=== PATIENT | male | born 1980 | race Caucasian/White ===

== ENCOUNTER 2019-07-04 12:11 | Emergency (ER) | payer MEDICAID ==
[~2019-07-04] VITALS: Ht 182.9 cm; Wt 109.1 kg
[2019-07-04 12:12] VITALS: BP 124/91
== END 2019-07-04 12:50 | disposition home or self-care (01) ==
LOC: ER 12:12
DX: R05 Cough (principal); B34.9 Viral infection, unspecified; R50.9 Fever, unspecified; F07.81 Postconcussional syndrome; R51 Headache; I25.2 Old myocardial infarction; F12.90 Cannabis use, unspecified, uncomplicated; F15.90 Other stimulant use, unspecified, uncomplicated; Z88.5 Allergy status to narcotic agent
CPT/HCPCS: 99282

== ENCOUNTER 2019-09-17 06:16 | Emergency (ER) | payer MEDICAID ==
[~2019-09-17] VITALS: Ht 182.9 cm; Wt 96.4 kg
[2019-09-17 06:23] VITALS: BP 130/82
[2019-09-17] MEDS ORDERED: LIDOcaine 1% 30ml preserv. free vial SQ STA (07:06)
--- NOTE | 2019-09-17 08:08 | NUR ---
Dr. Maria at bedside.
[2019-09-17] MEDS ORDERED: ALBU6.7H9 INH (08:27)
== END 2019-09-17 08:41 | disposition home or self-care (01) ==
LOC: ER 06:18
DX: S61.211A Laceration without foreign body of left index finger without damage to nail, initial encounter (principal); M79.645 Pain in left finger(s); I25.2 Old myocardial infarction; F17.200 Nicotine dependence, unspecified, uncomplicated; F12.90 Cannabis use, unspecified, uncomplicated; F15.90 Other stimulant use, unspecified, uncomplicated; Z88.8 Allergy status to other drugs, medicaments and biological substances; Z79.899 Other long term (current) drug therapy; W45.8XXA Other foreign body or object entering through skin, initial encounter; Y93.89 Activity, other specified; Y92.89 Other specified places as the place of occurrence of the external cause; Y99.8 Other external cause status
CPT/HCPCS: 12001; 99283

== ENCOUNTER 2019-10-28 21:00 | Emergency (ER) | payer MEDICAID ==
[~2019-10-28] VITALS: Ht 182.9 cm; Wt 100.0 kg
[~2019-10-28 21:00] MED LIST: ALBU6.7H9 INH
[2019-10-28 21:11] VITALS: BP 150/91
[2019-10-28] MEDS ORDERED: ibuprofen tablet 400 MG TABLET PO ONE (22:05)
[2019-10-28] MEDS ORDERED: ketorolac tromethamine 15mg/ml inj. IM ONE (23:30)
[2019-10-28] MEDS ORDERED: HYDR-3965 PO (23:51)
[2019-10-30] MEDS ORDERED: TRAM50TA2 PO (13:08)
[2019-10-30] MEDS ORDERED: SULF1TAB49 PO (13:08)
[2019-10-30] MEDS ORDERED: LEVO750T21 PO (13:08)
== END 2019-10-29 00:09 | disposition home or self-care (01) ==
LOC: ER 21:01
DX: S90.812A Abrasion, left foot, initial encounter (principal); M79.672 Pain in left foot; M79.89 Other specified soft tissue disorders; I25.2 Old myocardial infarction; F12.90 Cannabis use, unspecified, uncomplicated; F15.90 Other stimulant use, unspecified, uncomplicated; Z88.8 Allergy status to other drugs, medicaments and biological substances; Z79.899 Other long term (current) drug therapy; X58.XXXA Exposure to other specified factors, initial encounter; Y93.89 Activity, other specified; Y92.89 Other specified places as the place of occurrence of the external cause; Y99.8 Other external cause status
CPT/HCPCS: 73630; 96372; 99283; J1885

== ENCOUNTER 2019-10-30 11:28 | Emergency (ER) | payer MEDICAID ==
[~2019-10-30] VITALS: Ht 182.9 cm; Wt 100.0 kg
[~2019-10-30 11:28] MED LIST changes: +HYDR-3965 PO
[2019-10-30] MEDS ORDERED: mupirocin 2% ointment 22GM TP STA (12:14)
[2019-10-30] MEDS ORDERED: TETanus/Pertussis (Acell)/Diphther VAC/PF (Tdap-Adult) 0.5ml syringe IMVAC ONE (12:15)
[2019-10-30] MEDS ORDERED: ceFAZolin 1gm IM kit IM ONE (12:55)
[2019-10-30] MEDS ORDERED: SULF1TAB49 PO (13:08)
[2019-10-30] MEDS ORDERED: LEVO750T21 PO (13:08)
[2019-10-30] MEDS ORDERED: TRAM50TA2 PO (13:08)
[2019-10-30 14:19] VITALS: BP 137/91
== END 2019-10-30 13:57 | disposition home or self-care (01) ==
LOC: ER 11:29
DX: S92.421B Displaced fracture of distal phalanx of right great toe, initial encounter for open fracture (principal); M79.674 Pain in right toe(s); M79.89 Other specified soft tissue disorders; I25.2 Old myocardial infarction; F12.90 Cannabis use, unspecified, uncomplicated; F15.90 Other stimulant use, unspecified, uncomplicated; Z88.8 Allergy status to other drugs, medicaments and biological substances; Z79.899 Other long term (current) drug therapy; X58.XXXA Exposure to other specified factors, initial encounter; Y93.01 Activity, walking, marching and hiking; Y92.89 Other specified places as the place of occurrence of the external cause; Y99.8 Other external cause status
CPT/HCPCS: 73660; 87070; 87077; 90471; 90715; 96372; 99284; J0690; 87186

== ENCOUNTER 2020-01-06 13:53 | Outpatient (CLI) | payer MEDICAID ==
[~2020-01-06 13:53] MED LIST changes: -HYDR-3965 PO
[2020-01-06 15:56] LABS: BASOPHILS # (AUTO) 0.1 X10'3 (0-0.2); BASOPHILS % (AUTO) 0.9 % (0-1); EOSINOPHILS # (AUTO) 0.2 X10'3 (0-0.9); EOSINOPHILS % (AUTO) 2.3 % (0-6); HEMATOCRIT 47.6 % (42.0-52.0); HEMOGLOBIN 16.4 g/dl (14.0-17.9); LYMPHOCYTES # (AUTO) 1.7 X10'3 (1.1-4.8); LYMPHOCYTES % (AUTO) 20.9 % (21-51); MEAN CORPUSCULAR HEMOGLOBIN 32.1 PG (27.0-31.0); MEAN CORPUSCULAR HGB CONC 34.5 g/dL (33.0-36.5); MEAN PLATELET VOLUME 8.7 FL (7.4-10.4); MONOCYTES % (AUTO) 12.8 % (2-12); NEUTROPHILS % (AUTO) 63.1 % (42-75); PLATELET COUNT 293 X10'3 (140-440); RED BLOOD COUNT 5.12 X10'6 (4.70-6.10); RED CELL DISTRIBUTION WIDTH 13.5 % (11.5-14.5)
[2020-01-06 16:14] LABS: ALANINE AMINOTRANSFERASE 18 U/L (12-78); ALBUMIN 4.3 G/DL (3.4-5.0); ALKALINE PHOSPHATASE 74 IU/L (46-116); ANION GAP 8 (8-16); ASPARTATE AMINO TRANSFERASE 16 U/L (10-37); BLOOD UREA NITROGEN 20 MG/DL (7-18); BUN/CREATININE RATIO 20.2 (5.4-32.0); CALCIUM 9.3 MG/DL (8.5-10.1); CHLORIDE 103 MMOL/L (99-107); CREATININE 0.99 MG/DL (0.60-1.10); GLUCOSE 81 MG/DL (70-104); POTASSIUM 3.6 MMOL/L (3.5-5.1); SODIUM 140 MMOL/L (135-145); TOTAL CARBON DIOXIDE 29.3 MMOL/L (24-32); TOTAL PROTEIN 8.5 G/DL (6.4-8.2); eGFR 85 ML/MIN
[2020-01-06 16:30] LABS: HEMOGLOBIN A1C 5.3 % (4.5-6.2)
[2020-01-06 18:10] LABS: HIV ANTIBODY 1&2 RAPID NON-REACTIVE (Neg)
[2020-01-08 14:11] LABS: HEP A AB, IGM Negative (Negative); HEPATITIS C ANTIBODY >11.0 s/co ratio (0.0-0.9)
== END 2020-01-06 23:59 | disposition home or self-care (01) ==
LOC: LAB 13:53
PROVIDERS: ATTEND Family Medicine
DX: Z11.3 Encounter for screening for infections with a predominantly sexual mode of transmission (principal)
CPT/HCPCS: 36415; 80053; 82043; 82570; 83036; 84439; 84443; 85025; 85651; 86140; 86480; 86592; 86703; 86706; 86709; 86803

== ENCOUNTER 2020-04-09 16:00 | Emergency (ER) | payer MEDICAID ==
[~2020-04-09] VITALS: Ht 182.9 cm; Wt 93.2 kg
[2020-04-09 16:24] VITALS: BP 111/72
[2020-04-09 18:31] LABS: BASOPHILS % (AUTO) 0.4 % (0-1); EOSINOPHILS # (AUTO) 0.3 X10'3 (0-0.9); EOSINOPHILS % (AUTO) 2.3 % (0-6); HEMATOCRIT 49.9 % (42.0-52.0); HEMOGLOBIN 17.2 g/dl (14.0-17.9); LYMPHOCYTES # (AUTO) 2.2 X10'3 (1.1-4.8); LYMPHOCYTES % (AUTO) 20.4 % (21-51); MEAN CORPUSCULAR HEMOGLOBIN 32.2 PG (27.0-31.0); MEAN CORPUSCULAR HGB CONC 34.5 g/dL (33.0-36.5); MEAN CORPUSCULAR VOLUME 93.5 FL (78-98); MONOCYTES # (AUTO) 0.9 X10'3 (0-0.9); MONOCYTES % (AUTO) 8.5 % (2-12); NEUTROPHILS # (AUTO) 7.4 X10'3 (1.8-7.7); NEUTROPHILS % (AUTO) 68.4 % (42-75); PLATELET COUNT 283 X10'3 (140-440); RED BLOOD COUNT 5.33 X10'6 (4.70-6.10); WHITE BLOOD COUNT 10.9 X10'3 (4.5-11.0)
[2020-04-09 18:46] LABS: C-REACTIVE PROTEIN 0.58 MG/DL (0.0-0.5)
== END 2020-04-09 20:05 | disposition home or self-care (01) ==
LOC: ER 16:01
DX: B34.9 Viral infection, unspecified (principal); R07.89 Other chest pain; F12.90 Cannabis use, unspecified, uncomplicated; F15.90 Other stimulant use, unspecified, uncomplicated; Z88.8 Allergy status to other drugs, medicaments and biological substances; Z79.899 Other long term (current) drug therapy; Z86.16 Personal history of COVID-19
CPT/HCPCS: 36415; 71045; 83735; 83880; 84484; 85025; 86140; 93005; 99285

== ENCOUNTER 2020-07-14 16:32 | Emergency (ER) | payer MEDICAID ==
[~2020-07-14] VITALS: Ht 182.9 cm; Wt 100.0 kg
[2020-07-14 16:34] VITALS: BP 121/65
== END 2020-07-14 18:21 | disposition home or self-care (01) ==
LOC: ER 16:33
DX: M25.562 Pain in left knee (principal); I25.2 Old myocardial infarction; F12.90 Cannabis use, unspecified, uncomplicated; F15.90 Other stimulant use, unspecified, uncomplicated; Z88.8 Allergy status to other drugs, medicaments and biological substances; Z79.899 Other long term (current) drug therapy
CPT/HCPCS: 73564; 99284

== ENCOUNTER 2020-07-31 21:03 | Emergency (ER) | payer MEDICAID ==
[~2020-07-31] VITALS: Ht 182.9 cm; Wt 97.7 kg
[2020-07-31 21:35] VITALS: BP 118/66
[2020-07-31] MEDS ORDERED: PRED20TA PO (21:42)
[2020-07-31] MEDS ORDERED: LIDOcaine 1% W/epiNEPHrine 1:200,000 10ml vial IJ ONE (21:50)
== END 2020-07-31 22:12 | disposition home or self-care (01) ==
LOC: ER 21:04
DX: S01.01XA Laceration without foreign body of scalp, initial encounter (principal); S09.90XA Unspecified injury of head, initial encounter; I25.2 Old myocardial infarction; F12.90 Cannabis use, unspecified, uncomplicated; F15.90 Other stimulant use, unspecified, uncomplicated; Z88.8 Allergy status to other drugs, medicaments and biological substances; Z79.899 Other long term (current) drug therapy; W22.8XXA Striking against or struck by other objects, initial encounter; Y93.89 Activity, other specified; Y92.89 Other specified places as the place of occurrence of the external cause; Y99.8 Other external cause status
CPT/HCPCS: 12001; 99282

== ENCOUNTER 2021-02-12 18:03 | Emergency (ER) | payer MEDICAID ==
[~2021-02-12] VITALS: Ht 182.9 cm; Wt 92.3 kg
[2021-02-12] MEDS ORDERED: AMOX-580 PO (20:30)
[2021-02-12] MEDS ORDERED: amox tr/potassium clavulanate 875/125mg TAB PO ONE (21:25)
[2021-02-12 21:36] VITALS: BP 108/74
== END 2021-02-12 21:37 | disposition home or self-care (01) ==
LOC: ER 18:04
DX: S60.463D Insect bite (nonvenomous) of left middle finger, subsequent encounter (principal); M79.89 Other specified soft tissue disorders; R07.89 Other chest pain; I25.2 Old myocardial infarction; F12.90 Cannabis use, unspecified, uncomplicated; F15.90 Other stimulant use, unspecified, uncomplicated; Z88.8 Allergy status to other drugs, medicaments and biological substances; Z79.2 Long term (current) use of antibiotics; Z79.899 Other long term (current) drug therapy; W55.01XD Bitten by cat, subsequent encounter
CPT/HCPCS: 93005; 99283

== ENCOUNTER 2023-05-18 14:19 | Emergency (ER) | payer MEDICAID ==
[~2023-05-18] VITALS: Ht 182.9 cm; Wt 93.3 kg
[~2023-05-18 14:19] MED LIST changes: +ALBU6.7H14 INH; -ALBU6.7H9 INH
[2023-05-18] MEDS ORDERED: DOXY-224 PO (14:25)
[2023-05-18] MEDS ORDERED: NAPR-56 PO (14:25)
[2023-05-18 14:31] VITALS: BP 126/66; PULSE 78; RESP 16; TEMP 97.7; O2SAT 98
== END 2023-05-18 14:33 | disposition home or self-care (01) ==
LOC: ER 14:19
DX: K04.7 Periapical abscess without sinus (principal); I25.2 Old myocardial infarction; F12.90 Cannabis use, unspecified, uncomplicated; F15.90 Other stimulant use, unspecified, uncomplicated; Z72.89 Other problems related to lifestyle; Z88.5 Allergy status to narcotic agent; Z79.899 Other long term (current) drug therapy
CPT/HCPCS: 99283

== ENCOUNTER 2024-03-18 17:40 | Emergency (ER) | payer MEDICAID ==
[~2024-03-18] VITALS: Ht 182.9 cm; Wt 94.5 kg
[2024-03-18 18:28] LABS: BASOPHILS # (AUTO) 0.1 X10'3 (0-0.2); BASOPHILS % (AUTO) 0.8 % (0-1); EOSINOPHILS # (AUTO) 0.4 X10'3 (0-0.9); EOSINOPHILS % (AUTO) 2.8 % (0-6); HEMATOCRIT 47.5 % (42.0-52.0); HEMOGLOBIN 16.5 g/dl (14.0-17.9); LYMPHOCYTES # (AUTO) 2.8 X10'3 (1.1-4.8); LYMPHOCYTES % (AUTO) 19.8 % (21-51); MEAN CORPUSCULAR HGB CONC 34.7 g/dL (33.0-36.5); MEAN CORPUSCULAR VOLUME 95.1 FL (78-98); MEAN PLATELET VOLUME 7.5 FL (7.4-10.4); MONOCYTES # (AUTO) 1.2 X10'3 (0-0.9); MONOCYTES % (AUTO) 8.4 % (2-12); NEUTROPHILS # (AUTO) 9.5 X10'3 (1.8-7.7); NEUTROPHILS % (AUTO) 68.2 % (42-75); PLATELET COUNT 266 X10'3 (140-440); RED BLOOD COUNT 4.99 X10'6 (4.70-6.10); RED CELL DISTRIBUTION WIDTH 13.4 % (11.5-14.5)
[2024-03-18 18:35] VITALS: BP 103/68; PULSE 72; TEMP 97.8; O2SAT 95
[2024-03-18 18:43] LABS: ALANINE AMINOTRANSFERASE 28 U/L (12-78); ALBUMIN 3.8 G/DL (3.4-5.0); ALBUMIN/GLOBULIN RATIO 1.1 (1.1-1.5); ALKALINE PHOSPHATASE 68 IU/L (46-116); ANION GAP 7 (8-16); ASPARTATE AMINO TRANSFERASE 20 U/L (10-37); BILIRUBIN,TOTAL 0.3 MG/DL (0.1-1.0); BLOOD UREA NITROGEN 24 MG/DL (7-18); CALCIUM 9.3 MG/DL (8.5-10.1); CHLORIDE 107 MMOL/L (99-107); CREATININE 1.09 MG/DL (0.60-1.10); GLUCOSE 80 MG/DL (70-104); POTASSIUM 4.9 MMOL/L (3.5-5.1); SODIUM 143 MMOL/L (135-145); TOTAL CARBON DIOXIDE 28.6 MMOL/L (24-32); TOTAL PROTEIN 7.4 G/DL (6.4-8.2); eCRCL 98 ML/MIN; eGFR 75 ML/MIN
[2024-03-18 18:51] LABS: PRO BRAIN NATRIURETIC PEPTIDE 43 PG/ML (0-125)
[2024-03-18] MEDS: normal saline 1000ml 1,000 ML IV ONE (19:07)
[2024-03-18 19:08] VITALS: RESP 16
[2024-03-18] MEDS: ondansetron/PF 4mg/2ml inj IV ONE (19:08)
[2024-03-18] MEDS: ketorolac trometh 30MG/ML vial 30 MG/ML VIAL IV ONE (19:08)
[2024-03-18] MEDS ORDERED: iohexol 300mg/ml 100ml inj. ONE (19:14)
[2024-03-18 19:17] LABS: LIPASE 49 U/L (16-77)
[2024-03-18 19:20] LABS: BILIRUBIN,URINE NEGATIVE (Neg); CLARITY,URINE CLEAR (Clear); COLOR,URINE YELLOW (Yellow); GLUCOSE, URINE NEGATIVE (Neg); KETONES,URINE NEGATIVE (Neg); LEUKOCYTE ESTERASE ,URINE NEGATIVE (Neg); NITRITES, URINE NEGATIVE (Neg); OCCULT BLOOD,URINE NEGATIVE (Neg); PH,URINE 5.5 (4.8-8.0); PROTEIN,URINE NEGATIVE (Neg); UROBILINOGEN,URINE 0.2 E.U/dL (0.2-1.0)
[2024-03-18 19:22] LABS: UA COLLECTION TYPE CLN CATCH MIDSTREAM
== END 2024-03-18 21:08 | disposition home or self-care (01) ==
LOC: ER 17:41
DX: K59.00 Constipation, unspecified (principal); F15.90 Other stimulant use, unspecified, uncomplicated; F12.90 Cannabis use, unspecified, uncomplicated; Z88.5 Allergy status to narcotic agent
CPT/HCPCS: 36415; 71045; 74177; 80053; 81003; 83605; 83690; 83880; 84484; 85025; 87040; 93005; 96361; 96374; 96375; 99285; J1885; J2405; J7030; Q9967

== ENCOUNTER 2024-05-01 11:12 | Emergency (ER) | payer MEDICAID ==
[~2024-05-01] VITALS: Ht 182.9 cm; Wt 74.0 kg
[2024-05-01] MEDS ORDERED: CEPH-585 PO (12:04)
[2024-05-01 13:55] VITALS: BP 131/84; PULSE 72; RESP 16; TEMP 98.8; O2SAT 98
== END 2024-05-01 13:59 | disposition home or self-care (01) ==
LOC: ER 11:13
DX: S62.307A Unspecified fracture of fifth metacarpal bone, left hand, initial encounter for closed fracture (principal); F12.90 Cannabis use, unspecified, uncomplicated; F15.90 Other stimulant use, unspecified, uncomplicated; I25.2 Old myocardial infarction; Z88.5 Allergy status to narcotic agent; Z79.899 Other long term (current) drug therapy; Y04.0XXA Assault by unarmed brawl or fight, initial encounter; Y93.89 Activity, other specified; Y92.89 Other specified places as the place of occurrence of the external cause; Y99.8 Other external cause status
CPT/HCPCS: 29125; 73130; 99283; A4565; A6449